=== PATIENT | female | born 1970 | race Caucasian/White ===

== ENCOUNTER → 2016-10-31 | Outpatient (REF) ==
[~2016-10-31] MED LIST: HCTZ 25MG25 MG PO; LEVAQUIN 250MG250 MG PO; LORTAB 5/500 501 TAB PO; PRILOSEC10 MG PO; PYRIDIUM200 M1 PO; SINGULAIR
[2016-10-31 11:29] LABS: THYROID STIMULATING HORMONE 2.25 uIU/mL (0.465-4.680)
== END ==
LOC: ZLAB.WCH 10:10
PROVIDERS: Internal Medicine
DX: Z01.89 Encounter for other specified special examinations (principal)

== ENCOUNTER → 2017-03-08 | Outpatient (CLI) | payer BC | LOC: MC.RAD 16:53 | DX: Z12.31 Encounter for screening mammogram for malignant neoplasm of breast (principal) ==

== ENCOUNTER → 2018-01-31 | Outpatient (REF) ==
[2018-01-31 16:17] LABS: C-REACTIVE PROTEIN 1.7 mg/dL (0.0-0.9)
[2018-01-31 16:45] LABS: THYROID STIMULATING HORMONE 2.2 uIU/mL (0.465-4.680)
== END ==
LOC: ZLAB.WCH 15:49
PROVIDERS: Internal Medicine
DX: Z01.89 Encounter for other specified special examinations (principal)

== ENCOUNTER → 2018-10-04 | Outpatient (CLI) | payer BC | LOC: MC.RAD 11:45 | DX: Z12.31 Encounter for screening mammogram for malignant neoplasm of breast (principal) ==

== ENCOUNTER → 2021-08-31 | Outpatient (CLI) | payer BC | LOC: MC.RAD 15:07 | DX: Z12.31 Encounter for screening mammogram for malignant neoplasm of breast (principal) ==